=== PATIENT | female | born 2000 | race Two or more races ===

== ENCOUNTER 2025-04-13 17:35 | Emergency (ER) | payer OTHER ==
[~2025-04-13] VITALS: Ht 162.6 cm; Wt 76.2 kg
[2025-04-13 18:16] LABS: BASO % 0.3 % (0.1-1.2); EOS # 0.03 (0.04-0.54); EOS % 0.5 % (0.7-7.0); HEMATOCRIT 38.7 % (34.1-44.9); LYMPH # 1.96 (1.18-3.74); LYMPH % 30.7 % (19.3-53.1); MONO % 6.3 % (4.7-12.5); NEUT # 3.94 (1.56-6.13); NEUT % 61.7 % (34.0-71.1); PLATELET COUNT 263 K/uL (163-369); RED BLOOD COUNT 4.65 M/uL (3.93-5.22)
[2025-04-13 19:14] LABS: URINE APPEARANCE Turbid; URINE BILIRRUBIN Negative (NEGATIVE); URINE BLOOD Trace; URINE COLOR Dark Yellow; URINE GLUCOSE Negative (NEGATIVE); URINE KETONE Trace (NEGATIVE); URINE LEUKOCYTE Negative; URINE NITRATE Negative; URINE PROTEIN Trace (NEGATIVE)
[2025-04-13 19:18] LABS: URINE BACTERIA 1360.9 uL (0.0-1933); URINE EPITHELIAL CELLS 27.5 uL (0.0-38.8); URINE RBC 21.3 uL (0.0-20.8); URINE WBC 13.1 uL (0.0-23.2)
[2025-04-13 19:25] LABS: URINE CAST 1.03 uL (0.0-1.40)
== END 2025-04-13 21:06 | disposition home or self-care (01) ==
LOC: ER 17:35
PROVIDERS: General Practice
DX: R10.2 Pelvic and perineal pain (principal); Z3A.01 Less than 8 weeks gestation of pregnancy

== ENCOUNTER 2025-04-20 12:23 | Emergency (ER) | payer OTHER ==
[~2025-04-20] VITALS: Ht 162.6 cm; Wt 75.3 kg
[2025-04-20] MEDS ORDERED: PRENATA CHEWAB1 EACH PO (13:11)
[2025-04-20 13:49] LABS: BASO % 0.4 % (0.1-1.2); EOS # 0.02 (0.04-0.54); EOS % 0.4 % (0.7-7.0); HEMATOCRIT 41.6 % (34.1-44.9); HEMOGLOBIN 13.7 g/dL (11.2-15.7); LYMPH # 1.26 (1.18-3.74); LYMPH % 22.1 % (19.3-53.1); MEAN CORPUSCULAR HEMOGLOBIN 27.5 pg (25.6-32.2); MONO # 0.28 (0.24-0.82); MONO % 4.9 % (4.7-12.5); NEUT # 4.09 (1.56-6.13); NEUT % 71.5 % (34.0-71.1); PLATELET COUNT 260 K/uL (163-369); RED BLOOD COUNT 4.99 M/uL (3.93-5.22); RED CELL DISTRIBUTION WIDTH 12.1 % (11.6-14.4)
[2025-04-20 14:09] LABS: INR 1.05; PARTIAL THROMBOPLASTIN TIME 24.4 SECONDS (22.0-34.0); PROTHROMBIN TIME 11.4 SECONDS (9.0-11.5)
[2025-04-20 15:01] LABS: ALBUMIN 3.8 gm/dL (3.4-5.0); BILIRUBIN TOTAL 0.26 mg/dL (0.3-1.2); CALCIUM 9.5 mg/dL (8.5-10.1); CREATININE SERUM 0.78 mg/dL (0.55-1.02); GFR 91.52; GLOBULINA 3.3 G/DL (2.4-3.5); POTASSIUM 3.95 mEq/L (3.5-5.1); TOTAL PROTEIN 7.1 gm/dL (6.4-8.2)
== END 2025-04-20 16:27 | disposition home or self-care (01) ==
LOC: ER 12:23
PROVIDERS: General Practice
DX: Z34.90 Encounter for supervision of normal pregnancy, unspecified, unspecified trimester (principal); Z3A.01 Less than 8 weeks gestation of pregnancy; R10.2 Pelvic and perineal pain; R10.32 Left lower quadrant pain